=== PATIENT | male | born 1985 | race African-American/Black ===

== ENCOUNTER 2019-11-07 02:40 | Emergency (ER) | payer SELFPAY ==
[~2019-11-07] VITALS: Ht 188 cm; Wt 79.4 kg
--- NOTE | 2019-11-07 02:40 | NUR ---
PT NAGI QUINTANILLA. TAKEN TO BED 11
[2019-11-07 02:50] VITALS: BP 123/75
--- NOTE | 2019-11-07 02:50 | NUR ---
pt attempted to provide urine but not able to
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
--- NOTE | 2019-11-07 02:55 | NUR ---
Dr. Lea examining patient.
[2019-11-07] MEDS ORDERED: diazePAM 5 MG TAB ONE (03:00)
[2019-11-07] MEDS: diazePAM 5 MG TAB PO ONE (03:02)
--- NOTE | 2019-11-07 04:49 | NUR ---
PT AMBULATED WITH A STEADY GAIT AROUND THE ER. VSS.
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
[2019-11-07] MEDS ORDERED: PIPERACILLIN/TAZOBACTAM 3.375 GM VIAL IV ONE (05:42)
[2019-11-07 06:40] VITALS: BP 138/70
--- NOTE | 2019-11-07 06:40 | NUR ---
Patient discharged with v/s stable. Written and verbal after care instructions given and explained. Patient verbalized understanding. Ambulatory with steady gait. All questions addressed prior to discharge. Advised to follow up with PMD.
[2019-11-10] MEDS ORDERED: PIPERACILLIN/TAZOBACTAM 3.375 GM in DEXTROSE 5% 50 ML IV ONE (07:05)
== END 2019-11-07 06:40 | disposition home or self-care (01) ==
LOC: MED 02:40
DX: F19.150 Other psychoactive substance abuse with psychoactive substance-induced psychotic disorder with delusions (principal); F17.210 Nicotine dependence, cigarettes, uncomplicated; F12.90 Cannabis use, unspecified, uncomplicated; Z88.0 Allergy status to penicillin
CPT/HCPCS: 99283; J2543

== ENCOUNTER 2020-06-20 09:29 | Emergency (ER) | payer SELFPAY ==
[~2020-06-20] VITALS: Ht 170.2 cm; Wt 84.8 kg
--- NOTE | 2020-06-20 09:30 | NUR ---
PT TAKEN TO ER BED 6.
--- NOTE | 2020-06-20 09:33 | NUR ---
DR WORTHINGTON AT BEDSIDE EXAMINING PATIENT
[2020-06-20 09:34] VITALS: BP 121/81
[2020-06-20] MEDS ORDERED: NACL 0.9% 1,000 ML IV ONE ×2 (09:40→09:45)
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
--- NOTE | 2020-06-20 09:51 | NUR ---
build technician at pt bedside.
--- NOTE | 2020-06-20 09:55 | NUR ---
Pt states he is unable to provide UA at this time, urinal at pt bedside.
[2020-06-20] MEDS ORDERED: chlordiazePOXIDE 25 MG CAP PO STA (09:56)
[2020-06-20 09:57] LABS: BASOPHILS % (AUTO) 0.3 % (0.0-2.0); EOSINOPHILS % (AUTO) 0.2 % (0.0-4.0); HEMATOCRIT 40.9 % (36-52); HEMOGLOBIN 13.8 g/dL (12.0-18.0); LYMPHOCYTES # (AUTO) 1.1 K/uL (2.0-11.5); LYMPHOCYTES % (AUTO) 15.9 % (20.5-51.1); MEAN CORPUSCULAR HEMOGLOBIN 30 pg (27-31); MEAN CORPUSCULAR HGB CONC 34 g/dL (33-37); MONOCYTES # (AUTO) 0.7 K/uL (0.8-1.0); MONOCYTES % (AUTO) 9.6 % (1.7-9.3); NEUTROPHILS # (AUTO) 5.3 K/uL (1.8-7.7); PLATELET COUNT (AUTO) 252 K/uL (140-450); RED CELL DISTRIBUTION WIDTH 13.2 % (11.6-13.7); WHITE BLOOD COUNT (AUTO) 7.2 K/uL (4.8-10.8)
[2020-06-20 10:37] LABS: ANION GAP 11.6 (8-16); POTASSIUM 3.6 mmol/L (3.5-5.1)
[2020-06-20 10:45] LABS: ACETAMINOPHEN < 0.5 ug/ml (10-30); SALICYLATE < 2.8 mg/dL (2.8-20.0)
--- NOTE | 2020-06-20 10:57 | NUR ---
PATIENT ELOPED FROM FACILITY. DISCHARGE INSTRUCTIONS NOT GIVEN TO PATIENT. DR. roy NOTIFIED.
[2020-06-20 11:15] VITALS: BP 121/81
[2020-06-20] MEDS ORDERED: chlordiazePOXIDE 25 MG CAP PO SCH (13:00)
--- NOTE | 2020-06-21 20:45 | NUR ---
LATE ENTRY- NORMAL SALINE 0.9% DISCONTINUED AT 1025
== END 2020-06-20 10:57 | disposition left against medical advice (07) ==
LOC: MED 09:29
DX: F41.9 Anxiety disorder, unspecified (principal)
CPT/HCPCS: 80048; 85025; 93005; 96360; 99284; G0480; G0482; J7030